=== PATIENT | female | born 1965 | race Hispanic/Latino ===

== ENCOUNTER → 2025-05-09 | Outpatient (CLI) | payer OTHER ==
[~2025-05-09] MED LIST: PANT20TA18 PO
--- NOTE | 2025-05-09 14:43 | HMCIMG ---
DOUBLE CONTRAST UPPER GI SERIES: Findings: The study was performed using provocative maneuvers After swallowing effervescent crystal and thick barium, there is no definite intrinsic or extrinsic lesion seen in the esophagus. The stomach is normal in size, shape, and configuration. The rugal folds appear to be normal. The duodenal bulb, duodenal sweep, and upper jejunum appear to be normal. Fluoroscopy time: 1.5 minutes IMPRESSION: NORMAL DOUBLE CONTRAST UPPER GI SERIES.
== END | disposition home or self-care (01) ==
LOC: RAH 10:47
PROVIDERS: ATTEND Surgery
DX: K44.9 Diaphragmatic hernia without obstruction or gangrene (principal); R14.2 Eructation; R12 Heartburn
CPT/HCPCS: 74240

== ENCOUNTER → 2025-07-14 | Outpatient (CLI) | payer OTHER ==
--- NOTE | 2025-07-15 16:19 | HMCIMG ---
Gastric Emptying Scan. EXAM: Nuclear Medicine Gastric Emptying Scan. INDICATION: Diaphragmatic hernia without obstruction or gangrene. REFERENCE EXAMINATION: None TECHNIQUE: 2.1 mCi of Tc99m sulfur colloid with egg whites, 2 slices of bread/jam, 4 ounces of water. FINDINGS: Transit of radiopharmaceutical from the stomach into the small bowel is not seen. Half gastric emptying not achieved during the period of study. IMPRESSION: Scintigraphic findings suggest gastroparesis. /Kelley
== END | disposition home or self-care (01) ==
LOC: RAH 07:51
PROVIDERS: ATTEND Surgery
DX: K44.9 Diaphragmatic hernia without obstruction or gangrene (principal); R12 Heartburn; R14.2 Eructation
CPT/HCPCS: 78264; A9541